=== PATIENT | male | born 1935 | race Caucasian/White ===

== ENCOUNTER 2022-06-08 12:11 | Outpatient (CLI) | payer MEDICARE | END 2022-06-08 12:12 | disposition home or self-care (01) | LOC: CSHULT 12:11 | PROVIDERS: ATTEND Urology | DX: C67.2 Malignant neoplasm of lateral wall of bladder (principal); R10.9 Unspecified abdominal pain; N28.1 Cyst of kidney, acquired | CPT/HCPCS: 76770 ==

== ENCOUNTER 2023-04-18 14:59 | Outpatient (CLI) | payer MEDICARE | END 2023-04-18 15:00 | disposition home or self-care (01) | LOC: CSHULT 14:59 | PROVIDERS: ATTEND Family Medicine | DX: M79.602 Pain in left arm (principal); Z98.890 Other specified postprocedural states; M79.89 Other specified soft tissue disorders ==